=== PATIENT | female | born 1950 | race Caucasian/White ===

== ENCOUNTER 2016-12-07 08:23 | Day surgery (SDC) | payer MEDICARE ==
[2016-12-07] MEDS ORDERED: diphenhydrAMINE HCl 25 MG CAP PO SCH (09:00)
[2016-12-07] MEDS ORDERED: INFLIXIMAB IVPB SCH (09:00)
[2016-12-07] MEDS ORDERED: Acetaminophen 500 MG TAB PO SCH (09:00)
[2016-12-07] MEDS ORDERED: diphenhydrAMINE HCl 50 MG/ML 1 ML VIAL IVP SCH (09:00)
[2016-12-07] MEDS ORDERED: SODIUM CHLORIDE IVPB SCH ×2 (09:00→10:00)
[2016-12-07] MEDS ORDERED: ADMIXTURE FEE IVPB SCH ×2 (09:00→10:00)
[2016-12-07] MEDS ORDERED: INFLIXIMAB DYYB IVPB SCH (10:00)
[2016-12-07] MEDS ORDERED: Sodium Chloride 0.9% 20 ML ONE (10:05)
[2016-12-07 10:32] VITALS: BP 127/72; TEMP 97.9
== END 2016-12-07 12:39 | disposition home or self-care (01) ==
LOC: ONC/OP 08:23
PROVIDERS: ATTEND Internal Medicine Rheumatology
DX: L40.50 Arthropathic psoriasis, unspecified (principal); E78.2 Mixed hyperlipidemia; Z79.899 Other long term (current) drug therapy; Z98.890 Other specified postprocedural states
CPT/HCPCS: 96367; 96413; 96415; A4216; J1200; J1745; J7050

== ENCOUNTER 2016-12-23 10:38 | Day surgery (SDC) | payer MEDICARE ==
[2016-12-23] MEDS ORDERED: Sodium Chloride 0.9% 20 ML ONE (11:01)
[2016-12-23] MEDS ORDERED: Acetaminophen 500 MG TAB PO SCH (11:15)
[2016-12-23] MEDS ORDERED: INFLIXIMAB DYYB IVPB SCH (11:15)
[2016-12-23] MEDS ORDERED: SODIUM CHLORIDE IVPB SCH (11:15)
[2016-12-23] MEDS ORDERED: ADMIXTURE FEE IVPB SCH (11:15)
[2016-12-23 11:41] VITALS: BP 116/67
== END 2016-12-23 14:29 | disposition home or self-care (01) ==
LOC: ONC/OP 10:38
PROVIDERS: ATTEND Internal Medicine Rheumatology
DX: L40.50 Arthropathic psoriasis, unspecified (principal)
CPT/HCPCS: 96367; 96413; 96415; A4216; J1200; J1745; J7050

== ENCOUNTER 2017-01-25 13:22 | Day surgery (SDC) | payer MEDICARE ==
[2017-01-25] MEDS ORDERED: Acetaminophen 500 MG TAB PO SCH (13:45)
[2017-01-25] MEDS ORDERED: Sodium Chloride 0.9% 20 ML ONE (13:47)
[2017-01-25 13:56] VITALS: BP 132/65; TEMP 98.7
[2017-01-25] MEDS ORDERED: diphenhydrAMINE 25 MG CAP PO SCH (14:00)
[2017-01-25] MEDS ORDERED: diphenhydrAMINE 50 MG/ML VIAL IVP SCH (14:00)
[2017-01-25] MEDS ORDERED: INFLIXIMAB DYYB IVPB SCH (14:00)
[2017-01-25] MEDS ORDERED: ADMIXTURE FEE IVPB SCH (14:00)
[2017-01-25] MEDS ORDERED: SODIUM CHLORIDE IVPB SCH (14:00)
== END 2017-01-25 16:57 | disposition home or self-care (01) ==
LOC: ONC/OP 13:22
PROVIDERS: ATTEND Internal Medicine Rheumatology
DX: L40.50 Arthropathic psoriasis, unspecified (principal)
CPT/HCPCS: 96375; 96413; A4216; J1200; J1745; J7050

== ENCOUNTER 2017-04-12 09:08 | Outpatient (CLI) | payer MEDICARE ==
[2017-04-12 13:49] LABS: Mean Corpuscular Volume 97.2 fl (81.0-99.0); Mean Platelet Volume 8.4 fL (7.4-10.4); Platelet Count 216 thou/uL (130-400); RBC Distribution Width 11.2 % (11.5-14.5); Red Blood Cell (RBC) Count 4.53 mill/uL (4.20-5.40); White Blood Cell (WBC) Count 6.6 thou/uL (4.8-10.8)
[2017-04-12 13:52] LABS: Bilirubin Negative (Negative); Blood, Urine Negative (Negative); Clarity CLEAR (Clear); Glucose, Urine (Dipstick) Negative (Negative); INR-International Normal Ratio 0.9; Leukocyte Negative (Negative); Nitrite Negative (Negative); Protein, Urine (Dipstick) Negative (Neg-Trace); Prothrombin Time 12.5 SEC (12.0-14.7); Specific Gravity, Urine 1.021 (1.002-1.036); Urobilinogen 0.2 mg/dL (0.2-1.0); pH, Urine 6.5 (5.0-9.0)
[2017-04-12 14:00] LABS: Bacteria/HPF None Seen HPF (None Seen); Hyaline Casts/LPF 0-3 HYALINE CAST LPF (0-3 Hyaline); Pathc Cast-AUWi Flag 0.13 (0-2.49); RBC/HPF 0-3 HPF (0-3); Squamous Epithelial None Seen HPF (0-3); WBC/HPF 0-3 HPF (0-3)
[2017-04-12 14:45] LABS: Anion Gap 12 mmol/L (10-20); BUN (Urea Nitrogen) 14 mg/dL (9.8-20.1); Calc. Creatinine Clearance 0 mL/min (70-130); Carbon Dioxide 31 mmol/L (23-31); Chloride 101 mmol/L (98-107); Estimated GFR-MDRD 86; Glucose 90 mg/dL (80-115); Potassium 4.6 mmol/L (3.5-5.1); Sodium 139 mmol/L (136-145)
== END 2017-04-12 09:09 | disposition home or self-care (01) ==
LOC: LABBT 09:08
PROVIDERS: ATTEND Orthopaedic Surgery
DX: Z01.810 Encounter for preprocedural cardiovascular examination (principal); M17.11 Unilateral primary osteoarthritis, right knee; Z96.652 Presence of left artificial knee joint
CPT/HCPCS: 80048; 81001; 85027; 85610; 86850; 86900; 86901; 87081; 87086; 93005; 93010

== ENCOUNTER 2017-04-18 05:35 | Day surgery (SDC) | payer MEDICARE ==
--- NOTE | 2017-04-12 08:41 | HP ---
HISTORY OF PRESENT ILLNESS: The patient is a 66-year-old female with a several year history of progr essive bilateral knee pain without injury. Intermittently 1 knee is bothering her more than the othe r, but currently her left knee is bothering her the most. She has had progressive symptoms despite r est, restriction of activities, lifestyle adjustments, use of Celebrex and cortisone injections. The pain is now interfering with day-to-day activities. PAST MEDICAL HISTORY: The patient is otherwise in good health. PAST SURGICAL HISTORY: She has had surgery for ovarian cyst and surgery on both wrists. She has his tory of high cholesterol and PVCs. CURRENT MEDICATIONS: Include vitamins, Zyrtec, Combigan drops, Zoloft, Livalo, tramadol, Celebrex, c alcium. ALLERGIES: CODEINE and SOMA. FAMILY HISTORY/SOCIAL HISTORY/REVIEW OF SYSTEMS: Otherwise unremarkable. PHYSICAL EXAMINATION: GENERAL: Reveals a healthy female. HEENT: Unremarkable. NECK: Supple. CHEST: Clear. HEART: Regular rate and rhythm. ABDOMEN: Soft, nontender. PELVIC/RECTAL/BREAST: Exams are deferred. EXTREMITIES: Pertinent findings related to her knees. There is mild varus deformity bilaterally. T here is tenderness and crepitus over the medial joint line bilaterally, left slightly greater than ri ght. Range of motion is 0-125 degrees bilaterally. There is no instability. Distal pulses are 2+. Neurovascular exam is intact. LABORATORY AND X-RAY FINDINGS: X-rays of both knees reveal tricompartmental degenerative arthritis w ith bone on bone collapse medially. IMPRESSION: Degenerative arthritis, both knees, left symptomatic more than right. PLAN: Left total knee replacement. She will probably require a staged right total knee replacement. The nature of the surgery, length of recovery, and potential complications such as infection, loss of motion, incomplete relief, delayed wound healing, neurovascular injury, thromboembolic phenomena, possible transfusion, and need for revision have been discussed in detail.
[2017-04-12 09:22] VITALS: BMI 31.2
[2017-04-18] MEDS ORDERED: CEFAZOLIN/Water 2 GM/20 ML SYRINGE ONE ×2 (05:56)
[2017-04-18] MEDS ORDERED: Tranexamic Acid 1,000 MG/100 ML BAG ONE ×2 (05:57→09:04)
[2017-04-18] MEDS ORDERED: Vancomycin HCl 1.5 GM in Sodium Chloride 0.9% 250 ML 300 ML IVPB SCH ×3 (06:00→18:00)
[2017-04-18] MEDS ORDERED: Fentanyl 100 MCG/2 ML VIAL ONE (06:26)
[2017-04-18] MEDS ORDERED: Midazolam HCl 2 mg/2 ml Vial ONE (06:26)
[2017-04-18] MEDS ORDERED: Bupivacaine 0.25% HCL 30 ML VIAL ONE (06:37)
[2017-04-18] MEDS ORDERED: Lidocaine 1% w/Epinephrine 1:200K 30 ML VIAL ONE (06:37)
[2017-04-18] MEDS ORDERED: Promethazine HCl 25 MG/ML VIAL IM PRN ×3 (07:18→14:47)
[2017-04-18] MEDS ORDERED: Zolpidem Tartrate 5 MG TAB PO PRN ×3 (07:18→14:58)
[2017-04-18] MEDS ORDERED: HYDROcodone/Acetaminophen 10/325 mg Tablet PO PRN ×5 (07:18→14:48)
[2017-04-18] MEDS ORDERED: Ondansetron HCl/PF 4 MG/2 ML Vial IVP PRN ×4 (07:18→14:57)
[2017-04-18] MEDS ORDERED: Ropivacaine 0.2% 550 ML 550 ML NERVE BLCK SCH ×2 (07:18→15:00)
[2017-04-18] MEDS ORDERED: traMADol HCl 50 MG TAB PO PRN ×3 (07:18→10:02)
[2017-04-18] MEDS ORDERED: Fentanyl 100 MCG/2 ML VIAL IV PRN (07:19)
[2017-04-18] MEDS ORDERED: Promethazine HCl 25 MG/ML VIAL SLOW IVP PRN ×3 (08:58→14:57)
[2017-04-18] MEDS ORDERED: Tranexamic Acid 1,000 MG in Sodium Chloride 0.9% 100 ML IVPB SCH ×2 (09:00→10:02)
--- NOTE | 2017-04-18 09:27 | RAD ---
LEFT KNEE 2 VIEWS: HISTORY: A 66-year-old female with recent total knee arthroplasty. FINDINGS: Recent total knee arthroplasty. No dislocation. No periprosthetic fracture. IMPRESSION: Unremarkable recent post total knee arthroplasty. POS: OFF
[2017-04-18] MEDS ORDERED: Senokot S 8.6-50 MG TAB PO SCH ×3 (10:02→21:00)
[2017-04-18] MEDS ORDERED: Multivitamin W/ Minerals 1 TAB PO SCH ×2 (10:02→11:15)
[2017-04-18] MEDS ORDERED: Sodium Chloride 0.9% 1,000 ML IV SCH (10:02)
[2017-04-18] MEDS ORDERED: Non-Formulary Item 1 EACH (Cetirizine Hcl [Zyrtec] 10 MG) PO SCH (10:02)
[2017-04-18] MEDS ORDERED: diphenhydrAMINE 25 MG CAP PO PRN ×2 (10:02→14:48)
[2017-04-18] MEDS ORDERED: Fentanyl 100 MCG/2 ML VIAL SLOW IVP PRN ×4 (10:02→14:48)
[2017-04-18] MEDS ORDERED: Non-Formulary Item 1 EACH (Cholecalciferol (Vitamin D3) [Vitamin D3] 5,000 UNIT) PO SCH (10:02)
[2017-04-18] MEDS ORDERED: Acetaminophen 325 MG TAB PO PRN ×2 (10:02→14:47)
[2017-04-18] MEDS ORDERED: Magnesium Oxide 250 MG TAB PO SCH (10:02)
[2017-04-18] MEDS ORDERED: Melatonin 3 MG TAB PO PRN ×2 (10:02→14:56)
[2017-04-18] MEDS ORDERED: Aspirin 81 mg Enteric Coated Tablet PO SCH ×3 (10:02→21:00)
[2017-04-18] MEDS ORDERED: Ferrous Gluconate 324 MG TAB PO SCH ×3 (10:02→21:00)
[2017-04-18] MEDS ORDERED: Loratadine 10 MG TAB PO SCH (11:15)
--- NOTE | 2017-04-18 11:44 | OP ---
DATE OF PROCEDURE: 04/18/2017 SURGEON: Delano Joaquin M.D. MANAGER IMAGE: Gareth Sears PA-C. ANESTHESIA: General plus femoral and sciatic nerve blocks. PREOPERATIVE DIAGNOSIS: Degenerative arthritis, left knee. POSTOPERATIVE DIAGNOSIS: Degenerative arthritis, left knee. PROCEDURES PERFORMED: Left total knee replacement with computer-assisted navigation with cemented Tr iathlon components with #4 femoral component, #4 universal tibial baseplate with 9 mm CS plastic inse rt, and A29 all plastic patellar component. NARRATIVE REPORT: After satisfactory anesthesia was induced in supine position, sequential compressi on device was placed on the non-operative leg throughout the procedure. The left leg was then preppe d and draped in routine sterile fashion. The left leg was elevated, exsanguinated with an Esmarch ba ndage, and the tourniquet inflated to 300 mmHg. A gently curved medial parapatellar incision was mad e and carried down to subcutaneous tissues. Bleeding points controlled with Bovie cautery. Medial p arapatellar arthrotomy was performed. Patella dislocated laterally and portions of the fat pad were excised for exposure. There was marked degenerative arthritis of the knee, especially medially, with large areas of exposed bone. Meniscal remnants and osteophytes were removed. Using the appropriate guides and the [email or web address] pinless navigation system, the distal femoral and proximal tibial articular s urfaces were excised with an oscillating saw to accept the trial components. It was felt that #4 fem oral component and #4 tibial baseplate with 9 mm CS plastic insert gave appropriate size, fit, stabil ity, and correction of the preoperative deformity. The patellar articular surface was excised to acc ept an all plastic A29 patellar component. The trial components were removed. The posterior capsule and subcutaneous tissues were injected with a mixture of 0.25% Marcaine and 1% lidocaine with epinep hrine. The knee was copiously irrigated with pulsatile lavage and the bony surfaces thoroughly clean ed and dried. The permanent components were then cemented in a single stage with 1 package of cement premixed with 1 gram of tobramycin powder. Excess cement was removed. There was again good fit and stability of the components and good patellar tracking. The knee was again copiously irrigated. Th e medial retinaculum and quadriceps mechanism was closed with interrupted #2 Vicryl and a running #2 Quill. Subcutaneous tissues were closed with running 0 Quill suture and the skin closed with running subcuticular 3-0 Monoderm and SurgiSeal skin adhesive. A sterile bulky compressive dressing was amparo lied and the tourniquet deflated after 67 minutes. The foot promptly pinked up. Sequential compress ion device was placed on the operated leg and she was awakened and taken to recovery room in stable c ondition. There were no apparent intraoperative complications. The estimated blood loss was less th an 100 mL.
[2017-04-18] MEDS ORDERED: Ketorolac Tromethamine 30 MG/ML VIAL IVP SCH ×2 (12:00→14:00)
[2017-04-18] MEDS ORDERED: Ropivacaine 0.5% HCl/PF (150 MG/30 ML VIAL) ONE (14:50)
[2017-04-18] MEDS ORDERED: Ropivacaine 0.2% HCl/PF (40 MG/20 ML VIAL) ONE (14:50)
[2017-04-18] MEDS: traMADol HCl 50 MG TAB PO PRN ×2 (15:04→21:22)
[2017-04-18] MEDS: CEFAZOLIN/Water 2 GM/20 ML SYRINGE SLOW IVP SCH ×4 (15:06→21:25)
[2017-04-18] MEDS: Sodium Chloride 0.9% 1,000 ML IV SCH (15:10)
[2017-04-18] MEDS ORDERED: Ketorolac Tromethamine 30 MG/ML VIAL ONE (15:13)
[2017-04-18] MEDS ORDERED: PROPOFOL 200 MG/20 ML VIAL ONE (15:13)
[2017-04-18] MEDS ORDERED: Dexamethasone 20 MG/5 ML VIAL ONE (15:13)
[2017-04-18] MEDS ORDERED: Ondansetron HCl/PF 4 MG/2 ML Vial ONE (15:13)
[2017-04-18] MEDS ORDERED: PHENYLEPHRINE-NS 100 MCG/ML 10 ML SYRINGE ONE (15:13)
[2017-04-18] MEDS: Aspirin 81 mg Enteric Coated Tablet PO SCH (20:41)
[2017-04-18] MEDS: Brimonidine Tartrate 0.2% Ophth Soln 5 ml Bottle EA EYE SCH (20:41)
[2017-04-18] MEDS: Timolol 0.5% Ophth Soln 5 ml Bottle EA EYE SCH (20:42)
[2017-04-18] MEDS ORDERED: Timolol 0.5% Ophth Soln 5 ml Bottle EA EYE SCH (21:00)
[2017-04-18] MEDS ORDERED: Brimonidine Tartrate 0.2% Ophth Soln 5 ml Bottle EA EYE SCH (21:00)
[2017-04-18] MEDS: Ketorolac Tromethamine 30 MG/ML VIAL IVP SCH (22:57)
[2017-04-19] MEDS: Sodium Chloride 0.9% 1,000 ML IV SCH ×2 (01:39→16:08)
[2017-04-19 05:09] VITALS: BP 113/71
[2017-04-19 05:46] LABS: Hemoglobin 12.1 g/dL (12.0-16.0); Mean Corpuscular HGB CONC 32.6 g/dL (32.0-36.0); Mean Corpuscular Hemoglobin 31.6 pg (27.0-31.0); Platelet Count 175 thou/uL (130-400); RBC Distribution Width 11.2 % (11.5-14.5); Red Blood Cell (RBC) Count 3.82 mill/uL (4.20-5.40); White Blood Cell (WBC) Count 11.9 thou/uL (4.8-10.8)
[2017-04-19] MEDS: Ketorolac Tromethamine 30 MG/ML VIAL IVP SCH ×3 (06:53→15:09)
[2017-04-19] MEDS: Aspirin 81 mg Enteric Coated Tablet PO SCH (08:42)
[2017-04-19] MEDS: HYDROcodone/Acetaminophen 10/325 mg Tablet PO PRN ×2 (08:42→15:00)
[2017-04-19] MEDS: Timolol 0.5% Ophth Soln 5 ml Bottle EA EYE SCH (08:43)
[2017-04-19] MEDS: Brimonidine Tartrate 0.2% Ophth Soln 5 ml Bottle EA EYE SCH (08:43)
[2017-04-19] MEDS ORDERED: Senokot S 8.6-50 MG TAB PO SCH (09:00)
[2017-04-19] MEDS ORDERED: Loratadine 10 MG TAB PO SCH ×2 (09:00)
[2017-04-19] MEDS ORDERED: Ferrous Gluconate 324 MG TAB PO SCH (09:00)
[2017-04-19] MEDS ORDERED: Multivitamin W/ Minerals 1 TAB PO SCH ×2 (09:00)
[2017-04-19 12:11] VITALS: TEMP 97.9
[2017-04-19] MEDS: traMADol HCl 50 MG TAB PO PRN (12:22)
[2017-04-20] MEDS ORDERED: Magnesium Oxide 250 MG TAB PO SCH ×2 (09:00)
== END 2017-04-19 16:39 | disposition home or self-care (01) ==
LOC: SDC 05:35 → SJJU 07:30 → UNDOADMIN 07:30 → SJJU 07:31 → EDSTATUS 09:00 → SDC 04-19 16:39
PROVIDERS: ATTEND Orthopaedic Surgery
PROC: 0SRD0J9 Replacement of Left Knee Joint with Synthetic Substitute, Cemented, Open Approach (ICD-10-PCS; principal; 2017-04-18)
PROC: 8E0YXBZ Computer Assisted Procedure of Lower Extremity (ICD-10-PCS; 2017-04-18)
DX: M17.0 Bilateral primary osteoarthritis of knee (principal); M16.0 Bilateral primary osteoarthritis of hip; E78.00 Pure hypercholesterolemia, unspecified; Z88.5 Allergy status to narcotic agent; Z98.890 Other specified postprocedural states
CPT/HCPCS: 20985; 27447; 73560; 85027; 97116 ×2; 97139 ×2; 97150; 97530 ×2; A4306; C1713; C1776; G8978; G8979; 36415; J1100; J1885; J2250; J2405; J2704; J2795; J3010; J3370; J7050; S0020

== ENCOUNTER 2018-04-07 09:42 | Outpatient (CLI) | payer MEDICARE ==
--- NOTE | 2018-04-07 11:44 | BD ---
Exam: DEXA Bone Density Date: 04-07-18 Comparison: None. History: 67-year-old post-menopausal female, evaluate for osteoporosis. Lumbar Spine: BMD (g/cm2) L1 0.650 T-Score: -3.1 L2 0.782 T-Score: -2.2 L3 0.825 T-Score: -2.4 L4 0.820 T-Score: -2.2 L1-L4 0.778 T-Score: -2.4 Femoral Neck: 0.543 T-Score: -2.8 Total Femur: 0.715 T-Score: -1.9 The FRAX/WHO fracture risk assessment tool is not reported as some T-Scores are at or below -2.5. Impression: Osteoporosis of femoral neck, correlating with a high associated risk for fracture. There is osteopen ia throughout the lumbar spine as well. POS: [facility]
--- NOTE | 2018-04-07 11:49 | RAD ---
THORACIC SPINE THREE VIEWS: History: M54.6 - pain in thoracic spine, chronic pain. FINDINGS: Extensive generalized disc osteophytosis and facet arthrosis. Mild heterogeneous bony demineralizatio n. Large calcification in the right upper quadrant, possibly a gallstone. No evidence for acute compr ession fracture or significant malalignment. IMPRESSION: Prominent thoracic spondylosis. Possible large calcified gallstone in the right upper quadrant. POS: [facility]
== END 2018-04-07 09:43 | disposition home or self-care (01) ==
LOC: BICMAMMO 09:42
PROVIDERS: ATTEND Internal Medicine Rheumatology
DX: Z13.820 Encounter for screening for osteoporosis (principal); M81.0 Age-related osteoporosis without current pathological fracture; M54.6 Pain in thoracic spine; M47.894 Other spondylosis, thoracic region; M85.88 Other specified disorders of bone density and structure, other site
CPT/HCPCS: 72072; 77080

== ENCOUNTER 2018-07-06 11:21 | Outpatient (CLI) | payer MEDICARE ==
--- NOTE | 2018-07-06 13:46 | MMO ---
Bilateral MAMMO Bilat Screen [facility]. CLINICAL HISTORY: Patient is 67 years old and is seen for screening. The patient has the following family history of breast cancer: maternal grandmother, at age 50. The patient has no personal history of cancer. VIEWS: The views performed were: bilateral craniocaudal with tomosynthesis and bilateral mediolateral oblique with tomosynthesis. FILMS COMPARED: The present examination has been compared to prior imaging studies performed at [facility] on 08/20/1999, 10/14/2000, 02/15/2002, 02/16/2002, 05/31/2003, 08/14/2004, 10/05/2005, 04/24/2007, 05/16/2008, 08/06/2009, 11/09/2010, 02/17/2012, 07/15/2014, 11/21/2015 and 11/22/2016. MAMMOGRAM FINDINGS: There are scattered fibroglandular densities. There are no suspicious masses, suspicious calcifications, or new areas of architectural distortion. IMPRESSION: THERE IS NO MAMMOGRAPHIC EVIDENCE OF MALIGNANCY. A ROUTINE FOLLOW-UP MAMMOGRAM IN 1 YEAR IS RECOMMENDED. THE RESULTS OF THIS EXAM WERE SENT TO THE PATIENT. ACR BI-RADS Category 1 - Negative MAMMOGRAPHY NOTE: 1. A negative mammogram report should not delay a biopsy if a dominant of clinically suspicious mass is present. 2. Approximately 10% to 15% of breast cancers are not detected by mammography. 3. Adenosis and dense breasts may obscure an underlying neoplasm.
== END 2018-07-06 11:22 | disposition home or self-care (01) ==
LOC: BICMAMMO 11:21
PROVIDERS: ATTEND Obstetrics & Gynecology
DX: Z12.31 Encounter for screening mammogram for malignant neoplasm of breast (principal); Z80.3 Family history of malignant neoplasm of breast
CPT/HCPCS: 77063; 77067

== ENCOUNTER 2018-08-17 08:21 | Outpatient (CLI) | payer MEDICARE ==
--- NOTE | 2018-08-17 11:54 | NM ---
NUCLEAR MEDICINE PARATHYROID SCAN: HISTORY: Hyperparathyroidism, unspecified. COMPARISON: None. TECHNIQUE: The patient was administered 26.7 mCi of technetium 99m sestamibi intravenously. Plain imaging was pe rformed immediately, at 1 hour and 2 hours. SPECT imaging was performed at 1 hour. FINDINGS: Expected distribution of the radiotracer. There is increased uptake along the inferior medial aspect of the right thyroid bed which may represent heterotopic thyroid tissue. However, the possibility of an adenoma cannot be completely excluded based upon the one hour SPECT and planar images. Better i nterrogation with a neck CT utilizing parathyroid protocol is recommended. The 2 hour planar images do not demonstrate any significant radiotracer retention in the right or lef t thyroid bed. IMPRESSION: No scintigraphic evidence of parathyroid adenoma on the 2 hour planar images. However, 1 hour SPECT i mages demonstrate asymmetric localization of radiotracer along the inferior medial aspect of the right thyroid bed which may represent heterotopic thyroid tissue. These findings are consistent with the 1 hour planar images. Better interrogation with a soft tissue neck CT, utilizing parathyroid protocol is recommended. Transcribed Date/Time: 08/17/2018 12:03 PM
== END 2018-08-17 08:22 | disposition home or self-care (01) ==
LOC: NM 08:21
PROVIDERS: ATTEND Internal Medicine Rheumatology
DX: E21.3 Hyperparathyroidism, unspecified (principal); M81.0 Age-related osteoporosis without current pathological fracture
CPT/HCPCS: 78072; A9500

== ENCOUNTER 2018-08-31 10:25 | Outpatient (CLI) | payer MEDICARE ==
[2018-08-31 11:13] LABS: Estimated GFR-MDRD - POC Greater than 90
--- NOTE | 2018-08-31 12:05 | CT ---
CT neck with and without contrast: (Parathyroid protocol) DATE: 08/31/2018 HISTORY: 68-year-old female with primary hyperparathyroidism. TECHNIQUE: IV injection of 100 mL of Isovue-370. Precontrast scan, 25 seconds postcontrast scan, and 65 second p ostcontrast scan, performed from just inferior to the bo to mid maxillary sinus level. Coronal and sagittal reconstructions. FINDINGS: On the recent nuclear medicine sestamibi scintigraphy and SPECT, there was a midline moderate sized f ocus of uptake inferior to the lower poles of the thyroid gland. On this CT, that corresponds to a large, elongated piece of tissue arising from the lower pole of the right lobe of the thyroid gland, which travels inferiorly at midline abutting the anterior surface the trachea. This mass measures approximately 1.5 x 3.5 x 1.5 cm. It has slightly heterogeneous enhancement, less intense than the re st of the thyroid gland. It appears to be slightly hyperdense relative to surrounding tissues, suggesting that it has intrinsic iodine, suggesting that it is a thyroid nodule rather than a parathy roid nodule (axial images 40 of 117, series 3, 2, and 7; coronal images 39 of 90 series 5, 37 of 91 series 9; sagittal images 36 of 64 series 6, 39 of 69, series 10). Near the right tracheoesophageal groove at the C6-7 level, there is an approximate 0.7 x 0.3 x 1 cm e nhancing piece of tissue abutting the posterior surface of the mid pole of the right lobe of thyroid gland (axial images 53 of 117, series 3, 2, and 7; coronal images 45 of 90 series 5 and 43 of 91 series 9; and sagittal images 39 of 64 series 6 and 42 of 69 series 10). Although the location is suggestive of parathyroid adenoma, it does also appear to have slightly increased attenuation on t he noncontrast scan suggesting intrinsic iodine content, suggesting that this is probably a thyroid nodule rather than a parathyroid adenoma. IMPRESSION: 1.) There is no good candidate for parathyroid adenoma. 2) the 2 nodules described above are poor candidates for parathyroid adenomas. They are probably thyr oid nodules.
== END 2018-08-31 10:26 | disposition home or self-care (01) ==
LOC: SCSCT 10:25 → BICCT 10:26
PROVIDERS: ATTEND Internal Medicine Rheumatology
DX: E21.3 Hyperparathyroidism, unspecified (principal)
CPT/HCPCS: 70492; 82565

== ENCOUNTER 2018-09-07 14:05 | Outpatient (CLI) | payer MEDICARE ==
[2018-09-07 14:19] LABS: #Basophils 0.1 thou/uL (0.0-0.2); #Eosinphils 0.3 thou/uL (0.0-0.7); #Lymphocytes 1.8 thou/uL (1.20-3.40); #Monocytes 0.6 thou/uL (0.11-0.59); #Neutrophils 4.9 thou/uL (1.40-6.50); %Basophils 1.5 % (0.0-1.0); %Eosinophils 3.9 % (0.0-10.0); %Lymphocytes 23.2 % (21.0-51.0); %Monocytes 7.4 % (0.0-10.0); %Neutrophils 64.1 % (42.0-75.0); Hemoglobin 14.2 g/dL (12.0-16.0); Mean Corpuscular HGB CONC 34.4 g/dL (32.0-36.0); Mean Corpuscular Hemoglobin 30.9 pg (27.0-31.0); Mean Corpuscular Volume 89.9 fL (78.0-98.0); Mean Platelet Volume 9.3 fL (7.4-10.4); Platelet Count 182 thou/uL (130-400); Red Blood Cell (RBC) Count 4.61 mill/uL (4.20-5.40); White Blood Cell (WBC) Count 7.7 thou/uL (4.8-10.8)
--- NOTE | 2018-09-07 15:39 | RAD ---
LEFT KNEE TWO VIEWS: 09/07/18 HISTORY: Left knee pain. FINDINGS/IMPRESSION: There are postop changes of total knee arthroplasty and good position and alignment. No fracture, dis location or bony destruction is seen. No periprosthetic lucency is noted to suggest loosening. POS: OFF
== END 2018-09-07 14:06 | disposition home or self-care (01) ==
LOC: SCSRAD 14:05
PROVIDERS: ATTEND Internal Medicine Rheumatology
DX: M25.562 Pain in left knee (principal); Z96.652 Presence of left artificial knee joint
CPT/HCPCS: 36415; 85025; 85652; 86140

== ENCOUNTER 2018-09-27 12:20 | Day surgery (SDC) | payer MEDICARE ==
[2018-09-26 15:17] VITALS: BMI 31.2
[2018-09-27] MEDS ORDERED: Sodium Bicarbonate 2.5 MEQ/5 ML VIAL ONE (13:11)
--- NOTE | 2018-09-27 14:16 | ULT ---
Thyroid ultrasound INDICATION: Thyroid nodule COMPARISON: CT of the soft tissue of the neck dated 08/31/2018 FINDINGS: The right thyroid lobe measures 4.0 x 0.8 x 1.4 cm. The lower portion of the right thyroid lobe that was found to be heterogeneous in appearance on the prior CT examination is partially visualized. The lower portion of this right thyroid lobe does protrude into the upper mediastinum limiting evalua tion by sonogram. At the very lower portion of this thyroid lobe there is a 7 mm well-circumscribed mixed echogenicity nodule. The inferior projecting portion of the lower right thyroid lobe is diffuse ly heterogeneous. A more hyperechoic nodule seen within the lower pole right thyroid lobe measuring 8 mm. The left thyroid lobe measures 1.7 x 3.7 x 1 cm. The left thyroid lobe is diffusely heterogeneous. Th ere is a well-circumscribed 5 mm hypoechoic nodule within left mid thyroid lobe. An additional heterogeneous 7 mm thyroid nodule seen within the inferior pole left thyroid lobe. IMPRESSION: 1. Multinodular goiter. 2. Dr. Soto has requested that the patient's right lower lobe thyroid nodule be sampled by ultrasou nd-guided FNA. 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 Transcribed Date/Time: 09/27/2018 2:45 PM
[2018-09-27 14:21] VITALS: BP 136/71; TEMP 97.7
--- NOTE | 2018-09-27 15:06 | ULT ---
Ultrasound-guided right thyroid nodule biopsy INDICATION: Suspicious heterogeneous region of the inferior pole right thyroid lobe. COMPARISON: CT of the soft tissues of the neck dated August 31, 2018 and a thyroid ultrasound dated Sep. TECHNIQUE: Informed consent was obtained. Preprocedure ultrasound was performed for guidance purposes . Site overlying the most suspicious heterogeneous but predominantly hypodense region of the lower pole of the right thyroid lobe was marked. Site was prepped and draped in usual sterile fashion. Buff ered 1% lidocaine was administered overlying subcutaneous tissues and strap muscles. Under ultrasound guidance, four separate FNA samples were obtained of the heterogeneous but predominantly h ypodense inferior pole of the right thyroid lobe felt to be suspicious by CT soft tissue examination dated 08/31/2018 and thyroid ultrasound dated 09/27/2018. Patient tolerated the sampling wi thout difficulty. Pressure was held at the biopsy site until hemostasis was obtained. The area was then cleansed and bandage. IMPRESSION: Successful sonographic guided FNA of a hypodense and heterogeneous region of the lower po le of the right thyroid gland. Transcribed Date/Time: 09/27/2018 3:09 PM
== END 2018-09-27 13:50 | disposition home or self-care (01) ==
LOC: ULT 12:20
PROVIDERS: ATTEND Specialist
PROC: 0GBH3ZX Excision of Right Thyroid Gland Lobe, Percutaneous Approach, Diagnostic (ICD-10-PCS; principal; 2018-09-27)
DX: E04.1 Nontoxic single thyroid nodule (principal); E21.3 Hyperparathyroidism, unspecified; M19.90 Unspecified osteoarthritis, unspecified site; K21.9 Gastro-esophageal reflux disease without esophagitis; E78.00 Pure hypercholesterolemia, unspecified; G43.909 Migraine, unspecified, not intractable, without status migrainosus; Z88.5 Allergy status to narcotic agent; Z88.8 Allergy status to other drugs, medicaments and biological substances; Z79.899 Other long term (current) drug therapy
CPT/HCPCS: 60100; 76536; 76942; 88173

== ENCOUNTER 2020-04-25 09:22 | Outpatient (CLI) | payer MEDICARE | END 2020-04-25 09:23 | disposition home or self-care (01) | LOC: BICMAMMO 09:22 | PROVIDERS: ATTEND Internal Medicine | DX: Z12.31 Encounter for screening mammogram for malignant neoplasm of breast (principal); M81.0 Age-related osteoporosis without current pathological fracture; M85.89 Other specified disorders of bone density and structure, multiple sites; Z80.3 Family history of malignant neoplasm of breast | CPT/HCPCS: 77063; 77067; 77080 ==

== ENCOUNTER 2020-05-08 09:44 | Outpatient (CLI) | payer MEDICARE ==
--- NOTE | 2020-05-08 10:12 | MMO ---
Right Breast MAMMO Unilat Diag [facility]. CLINICAL HISTORY: Patient is 69 years old and is seen for additional evaluation requested at current screening. The patient has the following family history of breast cancer: maternal grandmother, at age 50. The patient has no personal history of cancer. VIEWS: The views performed were: right craniocaudal spot compression magnification; right mediolateral spot compression magnification; and right mediolateral with tomosynthesis. FILMS COMPARED: The present examination has been compared to prior imaging studies performed at [facility] on 11/21/2015, 11/22/2016, 07/06/2018 and 04/25/2020. This study has been interpreted with the assistance of computer-aided detection. MAMMOGRAM FINDINGS: There are scattered fibroglandular densities. There are calcifications with grouped or clustered distribution seen in the right breast at 10 o'clock. These may be vascular in nature, but the number of calcifications is insufficient to be certain. IMPRESSION: CALCIFICATIONS IN THE RIGHT BREAST ARE PROBABLY BENIGN. FOLLOW-UP IN 6 MONTHS IS RECOMMENDED. THE RESULTS OF THIS EXAM WERE SENT TO THE PATIENT. ACR BI-RADS Category 3 - Probably benign finding - short interval follow-up suggested. [facility] will notify the patient of the need for additional imaging services. MAMMOGRAPHY NOTE: 1. A negative mammogram report should not delay a biopsy if a dominant of clinically suspicious mass is present. 2. Approximately 10% to 15% of breast cancers are not detected by mammography. 3. Adenosis and dense breasts may obscure an underlying neoplasm. Reported by: SERENA TAPIA MD Electonically Signed: [id number]
== END 2020-05-08 09:45 | disposition home or self-care (01) ==
LOC: BICMAMMO 09:44
PROVIDERS: ATTEND Internal Medicine
DX: R92.1 Mammographic calcification found on diagnostic imaging of breast (principal)
CPT/HCPCS: 77065; G0279

== ENCOUNTER 2020-08-15 12:03 | Outpatient (CLI) | payer MEDICARE | END 2020-08-15 12:04 | disposition home or self-care (01) | LOC: BICRAD 12:03 | PROVIDERS: ATTEND Internal Medicine Rheumatology | DX: M46.80 Other specified inflammatory spondylopathies, site unspecified (principal); M47.816 Spondylosis without myelopathy or radiculopathy, lumbar region; R93.5 Abnormal findings on diagnostic imaging of other abdominal regions, including retroperitoneum | CPT/HCPCS: 72110 ==

== ENCOUNTER 2022-06-22 08:55 | Outpatient (CLI) | payer MEDICARE | END 2022-06-22 08:56 | disposition home or self-care (01) | LOC: BICMAMMO 08:55 | PROVIDERS: ATTEND Internal Medicine | DX: R92.8 Other abnormal and inconclusive findings on diagnostic imaging of breast (principal); R92.1 Mammographic calcification found on diagnostic imaging of breast | CPT/HCPCS: 77066; G0279 ==

== ENCOUNTER → 2022-07-01 | Day surgery (SDC) | payer MEDICARE | END | disposition home or self-care (01) | LOC: MAMMO 06:50 | PROVIDERS: ATTEND Internal Medicine | DX: R92.0 Mammographic microcalcification found on diagnostic imaging of breast (principal); Z53.8 Procedure and treatment not carried out for other reasons; Z88.5 Allergy status to narcotic agent; Z88.8 Allergy status to other drugs, medicaments and biological substances | CPT/HCPCS: 19081 ==

== ENCOUNTER 2022-07-27 11:09 | Outpatient (CLI) | payer MEDICARE ==
[2022-07-27 13:53] LABS: #Basophils 0.1 10x3/uL (0.0-0.2); #Eosinphils 0.2 10x3/uL (0.0-0.5); #Monocytes 0.4 10x3/uL (0.0-1.1); #Neutrophils 4.4 10x3/uL (1.5-8.4); %Basophils 0.8 % (0.0-2.0); %Eosinophils 3.2 % (0.0-6.0); %Lymphocytes 21.3 % (18.0-47.0); %Monocytes 6.8 % (0.0-10.0); %Neutrophils 67.4 % (40.0-75.0); Hemoglobin 15.2 g/dL (12.0-15.5); Mean Corpuscular HGB CONC 33.3 g/dL (32.0-36.0); Mean Corpuscular Hemoglobin 30.3 pg (27.0-33.0); Mean Corpuscular Volume 90.8 fl (81.6-98.3); Mean Platelet Volume 11.1 fl (7.4-10.4); Platelet Count 224 10x3/uL (150-450); RBC Distribution Width 13.1 % (11.5-14.5); Red Blood Cell (RBC) Count 5.02 10x6/uL (3.90-5.03); White Blood Cell (WBC) Count 6.5 10x3/uL (3.5-10.5)
[2022-07-27 13:54] LABS: Anion Gap 15 mmol/L (10-20); BUN (Urea Nitrogen) 17 mg/dL (9.8-20.1); Calc. Creatinine Clearance 0 mL/min (70-130); Calcium 9.6 mg/dL (7.8-10.44); Carbon Dioxide 26 mmol/L (23-31); Chloride 104 mmol/L (98-107); Estimated GFR 90; Glucose 100 mg/dL (83-110); Potassium 4.5 mmol/L (3.5-5.1); Sodium 140 mmol/L (136-145)
== END 2022-07-27 11:10 | disposition home or self-care (01) ==
LOC: LABBT 11:09
PROVIDERS: ATTEND Surgery
DX: Z01.818 Encounter for other preprocedural examination (principal); N63.10 Unspecified lump in the right breast, unspecified quadrant
CPT/HCPCS: 80048; 85025; 93005; 93010

== ENCOUNTER 2022-07-30 06:31 | Day surgery (SDC) | payer MEDICARE ==
[2022-07-27 11:32] VITALS: BMI 34.0
[2022-07-30] MEDS ORDERED: fentaNYL PF 100 MCG/2 ML SYRINGE ONE (13:19)
[2022-07-30] MEDS ORDERED: HYDROmorphone 0.5 MG/0.5 ML SYRINGE ONE (13:19)
[2022-07-30] MEDS ORDERED: Lidocaine 2% PF 5 ML VIAL ONE (13:21)
[2022-07-30] MEDS ORDERED: Bupivacaine/Epinephrine 0.25% 30 ML VIAL ONE (13:21)
[2022-07-30] MEDS ORDERED: Sodium Chloride 0.9% 100 ML ONE (13:29)
[2022-07-30] MEDS ORDERED: CEFAZOLIN 2 GM VIAL ONE (13:29)
[2022-07-30] MEDS ORDERED: Dexamethasone 20 MG/5 ML VIAL ONE (13:36)
[2022-07-30] MEDS ORDERED: Ondansetron PF 4 MG/2 ML Vial ONE (13:36)
[2022-07-30] MEDS ORDERED: Lidocaine 1% PF 5 ML VIAL ONE (13:36)
[2022-07-30] MEDS ORDERED: PROPOFOL 200 MG/20 ML VIAL ONE (13:36)
[2022-07-30] MEDS ORDERED: ePHEDrine Sulfate 50 MG/10 ML VIAL ONE (13:36)
[2022-07-30] MEDS ORDERED: fentaNYL 50 mcg/mL 1 mL Vial ONE (14:47)
== END 2022-07-30 16:04 | disposition home or self-care (01) ==
LOC: SDC 06:31
PROVIDERS: ATTEND Surgery
PROC: 0HBT0ZZ Excision of Right Breast, Open Approach (ICD-10-PCS; principal; 2022-07-30)
DX: D05.11 Intraductal carcinoma in situ of right breast (principal); N64.1 Fat necrosis of breast; E78.5 Hyperlipidemia, unspecified; Z79.1 Long term (current) use of non-steroidal anti-inflammatories (NSAID); Z79.899 Other long term (current) drug therapy; Z88.5 Allergy status to narcotic agent; Z88.8 Allergy status to other drugs, medicaments and biological substances; Z91.048 Other nonmedicinal substance allergy status; Z96.649 Presence of unspecified artificial hip joint
CPT/HCPCS: 19281; 19301; 76098; J3010; 88307; 88341; 88342; J1100; J1170; J2001; J2405; J2704; J3490

== ENCOUNTER 2023-10-01 14:56 | Inpatient (IN) | payer MEDICARE ==
[~2023-10-01 14:56] MED LIST: Iopamidol-370 76% 500 ML MDV (1 ML CHARGE) ONE
[2023-10-01 16:17] LABS: #Basophils 0.04 10x3/uL (0.0-0.2); %Basophils 0.6 % (0.0-1.0); %Eosinophils 3.2 % (0.0-10.0); %Lymphocytes 21.9 % (21.0-51.0); %Monocytes 8.8 % (0.0-10.0); %Neutrophils 65.1 % (42.0-75.0); Mean Corpuscular HGB CONC 34.1 g/dL (32.0-36.0); Mean Corpuscular Hemoglobin 30.9 pg (27.0-31.0); Mean Corpuscular Volume 90.5 fL (78.0-98.0); Mean Platelet Volume 10.4 fL (7.4-10.4); Platelet Count 211 10x3/uL (130-400); RBC Distribution Width 13.2 % (11.5-14.5); Red Blood Cell (RBC) Count 4.86 mill/uL (4.20-5.40)
[2023-10-01 16:36] LABS: ALT (SGPT) 25 U/L (8-55); AST (SGOT) 23 U/L (5-34); Albumin 3.7 g/dL (3.4-4.8); Alkaline Phosphatase 66 U/L (40-110); Anion Gap 12 mmol/L (10-20); BUN (Urea Nitrogen) 15 mg/dL (9.8-20.1); Bilirubin, Total 0.8 mg/dL (0.2-1.2); Calc. Creatinine Clearance 0 mL/min (70-130); Calcium 9.9 mg/dL (7.8-10.44); Carbon Dioxide 26 mmol/L (23-31); Chloride 107 mmol/L (98-107); Estimated GFR 73; Globulin 2.6 g/dL (2.4-3.5); Glucose 109 mg/dL (83-110); Potassium 4.2 mmol/L (3.5-5.1); Protein, Total 6.3 g/dL (5.8-8.1); Sodium 141 mmol/L (136-145)
[2023-10-01 17:32] LABS: Troponin I Less than 0.010 ng/mL (< 0.028)
[2023-10-01 17:46] LABS: Magnesium 2.2 mg/dL (1.6-2.6)
[2023-10-01] MEDS ORDERED: Aspirin Chewable 81 MG TAB ONE (19:58)
[2023-10-01] MEDS ORDERED: Nitroglycerin 0.4 MG TAB 1 EACH ONE (19:58)
[2023-10-01] MEDS ORDERED: Labetalol HCl 100 MG/20 ML VIAL SLOW IVP PRN (21:11)
[2023-10-01] MEDS ORDERED: hydrALAZINE 20 MG/ML VIAL SLOW IVP PRN (21:11)
[2023-10-01] MEDS ORDERED: Acetaminophen 325 MG TAB PO PRN (21:11)
[2023-10-01] MEDS ORDERED: Ondansetron PF 4 MG/2 ML Vial IVP PRN (21:11)
[2023-10-01 22:26] VITALS: BMI 34.1
[2023-10-01] MEDS: traMADol HCl 50 MG TAB PO SCH (23:28)
[2023-10-02 04:15] LABS: #Basophils 0.04 10x3/uL (0.0-0.2); %Basophils 0.6 % (0.0-1.0); %Eosinophils 4.5 % (0.0-10.0); %Lymphocytes 24.3 % (21.0-51.0); %Monocytes 9.7 % (0.0-10.0); %Neutrophils 60.4 % (42.0-75.0); Hematocrit 40.1 % (36.0-47.0); Hemoglobin 13.7 g/dL (12.0-16.0); Mean Corpuscular HGB CONC 34.2 g/dL (32.0-36.0); Mean Corpuscular Hemoglobin 31.4 pg (27.0-31.0); Platelet Count 180 10x3/uL (130-400); RBC Distribution Width 13.1 % (11.5-14.5); Red Blood Cell (RBC) Count 4.36 mill/uL (4.20-5.40)
[2023-10-02 04:28] LABS: Hemoglobin A1c 5.4 % (4.0-6.0)
[2023-10-02 04:33] LABS: Anion Gap 11 mmol/L (10-20); BUN (Urea Nitrogen) 16 mg/dL (9.8-20.1); Calc. Creatinine Clearance 103 mL/min (70-130); Calcium 9.1 mg/dL (7.8-10.44); Carbon Dioxide 24 mmol/L (23-31); Cardiac Risk 5.3 (Less than 4.5); Chloride 106 mmol/L (98-107); Cholesterol 239 mg/dl (< 200 Desired); Estimated GFR 91; Glucose 97 mg/dL (83-110); HDL Cholesterol 45 mg/dL (>60 Neg Risk); LDL Cholesterol, Calculated 169 mg/dL; Potassium 3.7 mmol/L (3.5-5.1); Sodium 137 mmol/L (136-145); Triglycerides 125 mg/dL (Less than 150)
[2023-10-02] MEDS: Pantoprazole DR 40 MG TAB PO SCH (08:33)
[2023-10-02] MEDS: Aspirin 81 mg Enteric Coated Tablet PO SCH (08:33)
[2023-10-02] MEDS: CeleCOXIB 100 MG CAP PO SCH (20:59)
[2023-10-02] MEDS ORDERED: Calcium Carb, Cit/Magnesium Ox [Calmag Thins] 200 MG/50 MG Tab PO SCH (21:00)
[2023-10-02] MEDS: Loratadine 10 MG TAB PO SCH (21:00)
[2023-10-02] MEDS: Melatonin 3 MG TAB PO PRN (21:00)
[2023-10-02] MEDS: Atorvastatin Calcium 40 MG TAB PO SCH (21:00)
[2023-10-02] MEDS: traMADol HCl 50 MG TAB PO SCH (21:00)
[2023-10-03 05:10] LABS: #Basophils 0.06 10x3/uL (0.0-0.2); %Basophils 0.8 % (0.0-1.0); %Eosinophils 3.8 % (0.0-10.0); %Lymphocytes 19.4 % (21.0-51.0); %Monocytes 9.3 % (0.0-10.0); %Neutrophils 66.4 % (42.0-75.0); Hematocrit 43.1 % (36.0-47.0); Hemoglobin 14.6 g/dL (12.0-16.0); Mean Corpuscular HGB CONC 33.9 g/dL (32.0-36.0); Mean Corpuscular Hemoglobin 30.7 pg (27.0-31.0); Mean Corpuscular Volume 90.7 fL (78.0-98.0); Mean Platelet Volume 10.7 fL (7.4-10.4); Platelet Count 191 10x3/uL (130-400); RBC Distribution Width 13.1 % (11.5-14.5); Red Blood Cell (RBC) Count 4.75 mill/uL (4.20-5.40)
[2023-10-03 05:34] LABS: Anion Gap 10 mmol/L (10-20); BUN (Urea Nitrogen) 16 mg/dL (9.8-20.1); Calc. Creatinine Clearance 96 mL/min (70-130); Calcium 9.6 mg/dL (7.8-10.44); Carbon Dioxide 27 mmol/L (23-31); Chloride 108 mmol/L (98-107); Estimated GFR 86; Glucose 106 mg/dL (83-110); Potassium 4.1 mmol/L (3.5-5.1); Sodium 141 mmol/L (136-145)
[2023-10-03] MEDS: Doxazosin 2 MG TAB PO SCH (10:22)
[2023-10-03] MEDS: Pantoprazole DR 40 MG TAB PO SCH (10:23)
[2023-10-03] MEDS: Cholecalciferol 1,000 UNITS (25 MCG) TAB PO SCH (10:24)
[2023-10-03] MEDS: Sertraline 25 MG TAB PO SCH (10:24)
[2023-10-03] MEDS: Fish Oil 1,000 MG CAP PO SCH (10:25)
[2023-10-03] MEDS: Ascorbic Acid 500 mg Chewable Tablet PO SCH (10:25)
[2023-10-03] MEDS: Multivitamin w/Zinc Stress 1 TAB PO SCH (10:26)
[2023-10-03] MEDS: CO Q-10 CAPSULE 100 MG PO SCH (10:27)
[2023-10-03] MEDS: Losartan 25 MG TAB PO SCH (13:40)
[2023-10-03 17:01] VITALS: BP 159/85; TEMP 98.4
[2023-10-03] MEDS ORDERED: Atorvastatin Calcium 40 MG TAB PO SCH (21:00)
[2023-10-04] MEDS ORDERED: Losartan 25 MG TAB PO SCH (09:00)
== END 2023-10-03 18:17 | disposition home or self-care (01) | DRG 948 ==
LOC: ERS 14:56 → ERHOLD 19:41 → 2SE 22:05 → OBSVTOIN 10-03 10:30
PROVIDERS: ADMIT Internal Medicine; ATTEND Internal Medicine
DX: R53.1 Weakness (principal); R26.81 Unsteadiness on feet; I10 Essential (primary) hypertension; R91.1 Solitary pulmonary nodule; E78.00 Pure hypercholesterolemia, unspecified; Z96.653 Presence of artificial knee joint, bilateral; M81.0 Age-related osteoporosis without current pathological fracture; Z88.8 Allergy status to other drugs, medicaments and biological substances; Z88.5 Allergy status to narcotic agent; Z79.899 Other long term (current) drug therapy; Z91.048 Other nonmedicinal substance allergy status
CPT/HCPCS: 36415; 36416; 70450; 70496; 70498; 70551; 71045; 80048; 80053; 80061; 83036; 83605; 83735; 83880; 84484; 85025; 93005; 93306; G0378

== ENCOUNTER 2023-10-10 10:50 | Outpatient (CLI) | payer MEDICARE ==
[2023-10-10] MEDS ORDERED: Magnevist 469MG/ML 20 ML VIAL ONE (11:00)
== END 2023-10-10 10:51 | disposition home or self-care (01) ==
LOC: MRI 10:50
PROVIDERS: ATTEND Internal Medicine
DX: I63.9 Cerebral infarction, unspecified (principal)
CPT/HCPCS: 70552; 76377; A9579

== ENCOUNTER 2024-01-25 13:50 | Outpatient (CLI) | payer MEDICARE | END 2024-01-25 13:51 | disposition home or self-care (01) | LOC: BICMAMMO 13:50 | PROVIDERS: ATTEND Internal Medicine Rheumatology | DX: M81.0 Age-related osteoporosis without current pathological fracture (principal); M85.89 Other specified disorders of bone density and structure, multiple sites | CPT/HCPCS: 77080 ==

== ENCOUNTER 2024-02-06 15:14 | Inpatient (IN) | payer MEDICARE ==
[2024-02-06 16:03] LABS: #Basophils 0.05 10x3/uL (0.0-0.2); %Basophils 0.5 % (0.0-1.0); %Eosinophils 1.6 % (0.0-10.0); %Lymphocytes 21.3 % (21.0-51.0); %Monocytes 6.8 % (0.0-10.0); %Neutrophils 69.4 % (42.0-75.0); Hematocrit 47.2 % (36.0-47.0); Hemoglobin 15.7 g/dL (12.0-16.0); Mean Corpuscular HGB CONC 33.3 g/dL (32.0-36.0); Mean Corpuscular Hemoglobin 31.2 pg (27.0-31.0); Mean Corpuscular Volume 93.7 fL (78.0-98.0); Mean Platelet Volume 10.2 fL (7.4-10.4); Platelet Count 198 10x3/uL (130-400); RBC Distribution Width 13.3 % (11.5-14.5); Red Blood Cell (RBC) Count 5.04 mill/uL (4.20-5.40)
[2024-02-06 16:19] LABS: ALT (SGPT) 25 U/L (8-55); AST (SGOT) 27 U/L (5-34); Alkaline Phosphatase 73 U/L (40-110); Anion Gap 14 mmol/L (10-20); BUN (Urea Nitrogen) 24 mg/dL (9.8-20.1); Calc. Creatinine Clearance 0 mL/min (70-130); Calcium 10.2 mg/dL (7.8-10.44); Carbon Dioxide 24 mmol/L (23-31); Chloride 103 mmol/L (98-107); Estimated GFR 81; Globulin 3.1 g/dL (2.4-3.5); Glucose 105 mg/dL (83-110); Potassium 4.2 mmol/L (3.5-5.1); Protein, Total 7.1 g/dL (5.8-8.1); Sodium 137 mmol/L (136-145)
[2024-02-06 16:30] LABS: Troponin I 0.265 ng/mL (< 0.028)
[2024-02-06] MEDS ORDERED: Bisacodyl 5 MG TAB PO PRN (17:32)
[2024-02-06] MEDS ORDERED: Acetaminophen 325 MG TAB PO PRN (17:32)
[2024-02-06 17:59] VITALS: BMI 35.2
[2024-02-06 19:40] LABS: Troponin I 0.178 ng/mL (< 0.028)
[2024-02-06] MEDS: Loratadine 10 MG TAB PO SCH (22:27)
[2024-02-06] MEDS: Enoxaparin 100 MG (1 mL) SYRINGE SC SCH (22:27)
[2024-02-07 05:00] LABS: #Basophils 0.08 10x3/uL (0.0-0.2); %Eosinophils 3.5 % (0.0-10.0); %Lymphocytes 25.9 % (21.0-51.0); %Monocytes 9.4 % (0.0-10.0); %Neutrophils 59.8 % (42.0-75.0); Hematocrit 42.8 % (36.0-47.0); Hemoglobin 14.3 g/dL (12.0-16.0); Mean Corpuscular HGB CONC 33.4 g/dL (32.0-36.0); Mean Corpuscular Hemoglobin 30.9 pg (27.0-31.0); Mean Corpuscular Volume 92.4 fL (78.0-98.0); Mean Platelet Volume 10.2 fL (7.4-10.4); Platelet Count 182 10x3/uL (130-400); RBC Distribution Width 13.4 % (11.5-14.5); Red Blood Cell (RBC) Count 4.63 mill/uL (4.20-5.40)
[2024-02-07 05:14] LABS: Anion Gap 14 mmol/L (10-20); BUN (Urea Nitrogen) 23 mg/dL (9.8-20.1); Calc. Creatinine Clearance 108 mL/min (70-130); Calcium 9.1 mg/dL (7.8-10.44); Carbon Dioxide 22 mmol/L (23-31); Chloride 110 mmol/L (98-107); Estimated GFR 92; Glucose 109 mg/dL (83-110); Sodium 142 mmol/L (136-145)
[2024-02-07] MEDS: Cholecalciferol 1,000 UNITS (25 MCG) TAB PO SCH (08:50)
[2024-02-07] MEDS: Doxazosin 2 MG TAB PO SCH ×2 (08:52→20:52)
[2024-02-07] MEDS: Fish Oil 1,000 MG CAP PO SCH (08:52)
[2024-02-07] MEDS: Pantoprazole DR 40 MG TAB PO SCH (08:52)
[2024-02-07] MEDS: Losartan 25 MG TAB PO SCH (08:52)
[2024-02-07] MEDS: Sertraline 25 MG TAB PO SCH (08:53)
[2024-02-07] MEDS: FLU (Fluad Triv) TS24-25 (65UP)/MF59C/PF 45 MCG/0.5 ML Syringe IM ONE (10:41)
[2024-02-07] MEDS: Atorvastatin Calcium 40 MG TAB PO SCH (10:42)
[2024-02-07] MEDS ORDERED: Non-Formulary Item 1 EACH (Losartan [Cozaar] 50 MG Tab) PO SCH (12:47)
[2024-02-07] MEDS ORDERED: hydrALAZINE 20 MG/ML VIAL SLOW IVP PRN (12:48)
[2024-02-07] MEDS: Multivitamin w/Zinc Stress 1 TAB PO SCH (13:44)
[2024-02-07] MEDS: Ondansetron PF 4 MG/2 ML Vial IVP PRN (17:39)
[2024-02-07] MEDS: Loperamide HCl 2 MG CAP PO PRN (20:50)
[2024-02-07] MEDS: traMADol HCl 50 MG TAB PO SCH (20:51)
[2024-02-07] MEDS: CeleCOXIB 100 MG CAP PO SCH (20:52)
[2024-02-08] MEDS ORDERED: Apixaban 5 MG TAB ONE (19:43)
[2024-02-09] MEDS ORDERED: Apixaban 5 MG TAB ONE ×2 (09:19→19:55)
[2024-02-10] MEDS: Melatonin 3 MG TAB PO PRN (00:18)
[2024-02-10 09:14] VITALS: BP 144/83; TEMP 98
[2024-02-10] MEDS: Apixaban 5 MG TAB PO SCH (10:49)
[2024-02-10] MEDS: Apixaban 5 MG TAB ONE (10:50)
[2024-02-10] MEDS ORDERED: Apixaban 5 MG TAB PO SCH (21:00)
== END 2024-02-10 14:00 | disposition home or self-care (01) | DRG 280 ==
LOC: ERS 15:14 → ERHOLD 16:25 → IMCU/EMU 20:36 → PCU 02-07 17:06
PROVIDERS: ADMIT Internal Medicine; ATTEND Internal Medicine
DX: I82.412 Acute embolism and thrombosis of left femoral vein (principal); I26.92 Saddle embolus of pulmonary artery without acute cor pulmonale; I21.A1 Myocardial infarction type 2; J96.01 Acute respiratory failure with hypoxia; I82.442 Acute embolism and thrombosis of left tibial vein; R91.1 Solitary pulmonary nodule; Z96.653 Presence of artificial knee joint, bilateral; M81.0 Age-related osteoporosis without current pathological fracture; E78.5 Hyperlipidemia, unspecified; F32.A Depression, unspecified; I10 Essential (primary) hypertension; Z88.8 Allergy status to other drugs, medicaments and biological substances; Z88.5 Allergy status to narcotic agent; Z91.09 Other allergy status, other than to drugs and biological substances; Z79.899 Other long term (current) drug therapy; Z79.82 Long term (current) use of aspirin; Z79.891 Long term (current) use of opiate analgesic; Z85.3 Personal history of malignant neoplasm of breast; Z92.3 Personal history of irradiation
CPT/HCPCS: 36415; 36416; 71045; 74177; 80048; 80053; 83880; 84484; 85025; 93005; 93306; 93970; J1650; J2405

== ENCOUNTER 2024-07-05 08:32 | Outpatient (CLI) | payer MEDICARE | END 2024-07-05 08:33 | disposition home or self-care (01) | LOC: BICMAMMO 08:32 | PROVIDERS: ATTEND Surgery | DX: Z08 Encounter for follow-up examination after completed treatment for malignant neoplasm (principal); Z86.000 Personal history of in-situ neoplasm of breast | CPT/HCPCS: 77066; G0279 ==